=== PATIENT | male | born 1995 | race Caucasian/White ===

== ENCOUNTER 2020-07-09 15:08 | Outpatient (CLI) | payer SELFPAY ==
[2020-07-10 08:35] LABS: Liquefaction Semen Complete in 30 min. (<30 minutes); Semen Color Opaque (Grey-opaque); Semen Immotility 40 %; Semen Non-Progressive Motility 10 %; Semen Progressive Motility 50 % (>32); Semen Total Motility 60 (>40% (PM+NP)); Semen Viscosity Increased (Not Increa.)
[2020-07-10 08:36] LABS: Sperm Count 84.6 Mil/mL (60-150 million/mL)
[2020-07-10 08:37] LABS: Semen Morphology Result to Follow
[2020-07-16 23:02] LABS: Fructose, Semen 182 mg/dL (150-600)
== END 2020-07-09 15:09 | disposition home or self-care (01) ==
LOC: CHSLAB 15:11
PROVIDERS: Visit Provider Obstetrics & Gynecology
DX: N46.9 Male infertility, unspecified (principal)
CPT/HCPCS: 82757; 88160; 88321; 89320

== ENCOUNTER 2023-07-15 08:43 | Emergency (ER) | payer OTHER, SELFPAY ==
[2023-07-15 09:02] VITALS: BP 131/85; PULSE 87; RESP 18; TEMP 36.9; O2SAT 100
--- NOTE | 2023-07-15 09:16 | ED.URI ---
HPI - URI/Sore Throat General Chief Complaint: Upper Respiratory Infection Stated Complaint: Sore Throat/Eye Problem Time Seen by Provider: 07/15/23 09:16 History of Present Illness HPI Narrative: 28 y/o male presented for c/o sore throat, nasal drainage, ear pressure , and cough x5 days. Endorses waking today with right eye green drainage and dry sensation, starting to feel left eye dryness. Denies photophobia, foreign body, injury, or vision changes. states girlfriend has pinkeye. denies shortness of breath, wheezing nausea, vomiting, fevers or chills. No treatment To the eye prior to arrival. has tried Mucinex. Related Data Allergies Allergy/AdvReac Type Severity Reaction Status Date / Time No Known Allergies Allergy Verified 07/15/23 09:21 Review of Systems Review of Systems: CONSTITUTIONAL: Denies body aches, fever, chills, or sweats. EYES: Denies visual changes, reports redness, discharge. ENT: reports rhinorrhea, congestion, sore throat, otalgia. CARDIOVASCULAR: Denies chest pain, palpitations, or edema. RESPIRATORY: Denies dyspnea. GASTROINTESTINAL: Denies abdominal pain, nausea, vomiting, or diarrhea. SKIN: Denies rash, itching, or wounds. MUSCULOSKELETAL: Denies back pain, joint pain, or myalgia. NEUROLOGIC: Denies headache Exam Narrative: GENERAL: well-appearing, no acute distress. EYES: bilateral conjunctival injection and purulent drainage, no swelling. PERRLA, EOMI. ENT: Mucous membranes moist. TMs pearly walker with normal light reflex and clear effusion bilaterally; no tragal tenderness. Oropharynx erythematous without lesions. Tonsils enlarged and without exudate. No drooling, no hoarseness, no trismus, uvula midline. No tripod positioning, hot potato voice, or soft palate swelling. NECK: Supple. No lymphadenopathy CHEST: Clear to auscultation, breath sounds equal. No respiratory distress, speaks in full sentences. HEART: Regular rate and rhythm. No murmur heard. SKIN: Warm, dry, no rash. NEURO: Alert and oriented x3. Course Course Emergency Course: Patient is aware of diagnosis, understands and agrees to treatment plan. Anticipatory guidance given. Patient agrees to follow-up as directed and is aware of reasons to seek care at the emergency department. Portions of this record may have been created with voice recognition software Level of Care: [facility] Visit Vital Signs Vital signs: Vital Signs Temperature 98.5 F 07/15/23 09:02 Pulse Rate 87 07/15/23 09:02 Respiratory Rate 18 07/15/23 09:02 Blood Pressure 131/85 07/15/23 09:02 Pulse Oximetry 100 07/15/23 09:02 Oxygen Delivery Room Air 07/15/23 09:02 Temperature 98.5 F 07/15/23 09:02 Pulse Rate 87 07/15/23 09:02 Respiratory Rate 18 07/15/23 09:02 Blood Pressure 131/85 07/15/23 09:02 Pulse Oximetry 100 07/15/23 09:02 Oxygen Delivery Room Air 07/15/23 09:02 MDM - URI/Sore Throat MDM Narrative Medical decision making narrative: Negative strep result reviewed with pt. discussed physical exam findings consistent with allergic rhinitis and acute bacterial conjunctivitis Advise supportive treatments. Patient is appropriate for outpatient treatment and follow-up. Differential Diagnosis Differential diagnosis: Likely upper respiratory infection, sinusitis, viral infection, pharyngitis and other (allergic reaction, urticaria, angioedema, dermatitis, cellulitis, blepharitis, stye, dacryoadenitis, conjunctivitis, uveitis) Lab Data Labs: Strep Screen Presumptive Negative *(Reference Range: Negative)* Discharge Plan Discharge Clinical Impression: Acute bacterial conjunctivitis, Allergic rhinitis Patient Disposition: Home, Self-Care Condition: Stable Instructions: Conjunctivitis (ED), Postnasal Drip (DC) Additional Instructions: Eyes: Avoid touching or rubbing your eye. Use over the counter lubricating eye
== END 2023-07-15 09:28 | disposition home or self-care (01) ==
PROVIDERS: Emergency Provider Nurse Practitioner Family
DX: H10.33 Unspecified acute conjunctivitis, bilateral (principal); J30.9 Allergic rhinitis, unspecified
CPT/HCPCS: 87081; 87880; 99213; G0463

== ENCOUNTER 2023-09-09 11:25 | Emergency (ER) | payer OTHER, SELFPAY ==
[2023-09-09 11:29] VITALS: BP 134/84; PULSE 83; RESP 16; TEMP 36.5; O2SAT 100
--- NOTE | 2023-09-09 12:29 | ED.EAR ---
HPI - Ear Problem General Chief complaint: Ear Stated complaint: right ear hearing loss Time Seen by Provider: 09/09/23 12:29 Source: patient, RN notes reviewed and old records reviewed Mode of arrival: ambulatory Limitations: no limitations History of Present Illness HPI Narrative: 28-year-old male [facility] with complaint of right ear fullness and decreased hearing. 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 he was hammering a metal bearing when he heard a loud ping sound in right ear head discomfort. Patient states that ear fullness became increasingly worse around 5:00 a.m.. Patient reports cough and postnasal drainage for the past several weeks. Patient states he has attempted to treat at home with Flonase and Claritin. patient denies sore throat, shortness of breath, allergies, fever, pertinent medical history. When asked, patient states that he does not wear ear plugs / protection as often as he should while working. Patient in no acute distress. Related Data Home Medications Medication Instructions Recorded Confirmed No Home Medications 09/09/23 09/09/23 Allergies Allergy/AdvReac Type Severity Reaction Status Date / Time No Known Allergies Allergy Verified 09/09/23 12:47 Review of Systems Review of Systems: All systems reviewed & are unremarkable except as noted in HPI and below Constitutional: Constitutional: Reports no additional constitutional complaints Eyes: Eyes: Reports no additional eye complaints ENT: Reports as per HPI, Reports otalgia ( Right ear fullness per patient he), Reports post nasal drip and Reports tinnitus ( right) Cardiovascular: Cardiovascular: Reports no additional cardiovascular complaints, Denies chest pain and Denies dyspnea Respiratory: Respiratory: Reports no additional respiratory complaints, Reports cough and Denies dyspnea Musculoskeletal: Musculoskeletal: Reports no additional musculoskeletal complaints Neurologic: Reports system reviewed and no additional complaints, except as documented Psychiatric: Psychiatric: Reports no additional psychiatric complaints PMFSH Comments At the time of my signature, I reviewed and agree with the nursing past medical, surgical, social, and family history. There is no relevant family history pertinent to the patient complaint. Exam Const: General: cooperative, healthy appearing, comfortable, no acute distress, alert, tired appearing and well nourished Nutritional Appearance: well nourished Orientation/consciousness: patient oriented x3 Limitations: no limitations HENMT: Head: normal to inspection Ears: external ears normal, Abnormal EAC present and TM abnormal with fluid behind the TM bilateral Face/Nose/Sinus: Normal external nose present, Normal nares present, normal facial exam, No erythema and No edema Face and sinus: normal facial exam, no erythema and no edema Mouth: Yes Normal oral and palatal mucosa present Eyes: General: appearance normal, both eyes and all related structures Neck: Neck: normal visual inspection, full ROM and no meningeal signs Lymphatic: no lymphadenopathy noted and no lymphedema noted Chest: Chest palpation & inspection: normal inspection of the chest Resp: Effort & Inspection: normal respiratory effort and able to speak in complete sentences Auscultation: clear to auscultation bilaterally Cardio: Jugular venous distension: no JVD Rate: regular rate Rhythm: regular rhythm Back/Spine/Pelvis: Cervical Spine: cervical ROM normal Skin: General skin exam: normal color, no rashes or lesions noted and turgor normal Neuro: General: patient oriented x3, gait normal, moves all extremities and no meningeal signs Speech: normal speech Gait exam (Neuro): Normal gait present Extrem: General: normal to inspection and full ROM Psych: Appearance: grossly normal and well kempt Course Course Emergency Course: Some parts of this dictation were generated by presley
== END 2023-09-09 12:47 | disposition home or self-care (01) ==
PROVIDERS: Emergency Provider Nurse Practitioner Family; PCP Physician Assistant
DX: H93.11 Tinnitus, right ear (principal); J06.9 Acute upper respiratory infection, unspecified
CPT/HCPCS: 99211; G0463